=== PATIENT | female | born 1945 | race Caucasian/White ===

== ENCOUNTER 2023-06-17 13:05 | Outpatient (OUT) | payer MEDICARE, OTHER, SELFPAY ==
--- NOTE | 2023-06-17 | XR_ITS ---
The [address] [address] Patient Name: NICHELLE BLAIR MRN: [id number] date: 1945 Sex: F Assigned Patient Location: [facility] Current Patient Location: [facility] Accession/Order Number: [id number] Exam Date: 06/17/2023 13:50 Report Date: 06/17/2023 16:09 At the request of: LAUREANO VOGT Procedure: XR chest 2V PROCEDURE: XR chest 2V DATE: 06/17/2023 12:50 PM CDT COMPARISONS: Chest x-ray from 08/20/2021. CT of the chest from 08/17/2021 CLINICAL INDICATION: 78 years Female Shortness of breath R06.02, Z87.09 personal history of other FINDINGS: The patient is significantly kyphotic which limits the exam somewhat. The cardiomediastinal silhouette and pulmonary vasculature are within normal limits. Slight scattered increased interstitial markings probably representing slight chronic lung changes. There is no evidence of pleural effusion or pneumothorax. There is bone demineralization. There is prominent kyphosis spinal catheter is noted of the thoracic spine as before. XR/XR chest 2V IMPRESSION: Limited exam due to kyphosis. Probable scattered chronic lung changes. Chest is otherwise within normal limits. Pleural effusions noted 2020 is not visualized today. Electronically authenticated by: RADHA SWARTZ Date: 06/17/2023 16:09
[2023-06-17 13:56] LABS: ABG PCO2 46.3 mmHg (35.0-45.0); Allen Test POSITIVE (POSITIVE); Base Excess ABG 2.7 mmol/L (-2.0-2.0); HCO3 ABG 27.7 mmol/L (22.0-26.0); PO2 ABG 65.6 mmHg (80.0-100.0); pH ABG 7.385 (7.350-7.450)
[2023-06-17 13:57] LABS: O2 Mode ROOM AIR
[2023-06-17 13:58] LABS: Puncture Site RR
== END 2023-06-17 13:06 | disposition home or self-care (01) ==
PROVIDERS: Visit Provider Internal Medicine
DX: J44.9 Chronic obstructive pulmonary disease, unspecified (principal); R06.02 Shortness of breath; Z87.09 Personal history of other diseases of the respiratory system; M40.204 Unspecified kyphosis, thoracic region
CPT/HCPCS: 36600; 71046; 82805